=== PATIENT | female | born 1950 | race Caucasian/White ===

== ENCOUNTER → 2017-08-21 | Outpatient (CLI) | payer BC | LOC: MC.RAD 11:00 | DX: Z12.31 Encounter for screening mammogram for malignant neoplasm of breast (principal); Q83.8 Other congenital malformations of breast ==

== ENCOUNTER → 2017-08-24 | Outpatient (CLI) | payer BC | LOC: MC.RAD 07:30 | DX: R92.8 Other abnormal and inconclusive findings on diagnostic imaging of breast (principal) ==

== ENCOUNTER 2021-06-15 20:21 | Emergency (ER) | payer MEDICARE, OTHER ==
[~2021-06-15] VITALS: Ht 162.6 cm; Wt 56.8 kg
[2021-06-15 20:35] VITALS: TEMP 97.8
[2021-06-15 22:17] VITALS: BP 157/91; PULSE 90
== END 2021-06-15 22:17 | disposition home or self-care (01) ==
LOC: COL.ER 20:21
DX: S61.012A Laceration without foreign body of left thumb without damage to nail, initial encounter (principal); W26.0XXA Contact with knife, initial encounter

== ENCOUNTER 2023-03-24 13:08 | Emergency (ER) | payer MEDICARE, OTHER ==
[~2023-03-24] VITALS: Ht 162.6 cm; Wt 52.3 kg
[2023-03-24 13:30] LABS: COLLECTION METHOD CLEAN CATCH
[2023-03-24 13:50] LABS: PH 5.5 (5.0-8.5); URINE APPEARANCE Turbid (CLEAR/HAZY); URINE BLOOD 3+ (NEGATIVE); URINE COLOR Amber (YELLOW); URINE GLUCOSE Negative (NEGATIVE); URINE KETONE TRACE (NEGATIVE); URINE NITRATE Negative (NEGATIVE); URINE PROTEIN(semi-quant) 2+ (NEGATIVE); URINE RBC >50 /hpf (0-2); URINE UROBILINOGEN 0.2 E.U/dL (0.2-1.0)
[2023-03-24 14:17] LABS: BASO # 0.1 K/mm3 (0.0-0.2); BASO % 0.5 % (0.0-2.0); EOS # 0.1 K/mm3 (0.0-0.7); EOS % 0.8 % (0.0-4.0); GRAN # 10.7 K/mm3 (1.4-6.5); GRAN % 82.6 % (42.2-75.2); HEMATOCRIT 38.9 % (37.0-47.0); HEMOGLOBIN 12.4 g/dl (12.5-16.0); LYMPH # 1.2 K/mm3 (1.2-3.4); LYMPH % 9.5 % (20.0-51.0); MEAN CELL VOLUME 89 fl (80.0-100.0); MEAN CORPUSCULAR HEMOGLOBIN 28 pg (27-31); MEAN CORPUSCULAR HGB CONC 32 g/dl (33.0-37.0); MEAN PLATELET VOLUME 10.9 fl (7.4-10.4); MONO # 0.8 K/mm3 (0.1-0.6); MONO % 6.3 % (1.7-9.3); PLATELET COUNT 248 K/mm3 (130-400); RED BLOOD COUNT 4.38 M/mm3 (4.10-5.30)
[2023-03-24 14:37] LABS: ALBUMIN 3.5 gm/dL (3.4-4.8); BILIRUBIN,TOTAL 0.3 mg/dL (0.2-1.2); C-REACTIVE PROTEIN 0.78 mg/dL (0.00-0.50); CALCIUM 10.2 mg/dL (8.4-10.2); CREATININE, serum 0.66 mg/dL (0.57-1.11); POTASSIUM 4.2 mmol/L (3.5-4.5)
[2023-03-24] MEDS ORDERED: CEFTIN500 MG PO (15:07)
[2023-03-24 15:29] VITALS: BP 138/78; PULSE 95; TEMP 98.1
[2023-03-26] MEDS ORDERED: EUTHYROX75 MCG PO (11:27)
[2023-03-26] MEDS ORDERED: EFFEXOR XR75 MG/CAP PO (11:28)
[2023-03-26] MEDS ORDERED: COZAAR 50MG50 MG/TAB PO (11:28)
[2023-03-26] MEDS ORDERED: OMEGA-3 1000 MG1 CAP PO (11:28)
[2023-03-26] MEDS ORDERED: MASON NATURAL2000 IU PO (11:29)
[2023-03-26] MEDS ORDERED: VITAMIN B COMPL1 SGL PO (11:29)
[2023-03-26] MEDS ORDERED: NATURE'S BLE1000 MCG (11:30)
[2023-03-26] MEDS ORDERED: MULTIPLE VITAMI1 CAP PO (11:30)
[2023-03-26] MEDS ORDERED: BENEFIBER (11:30)
[2023-03-26] MEDS ORDERED: Prevagen (11:33)
[2023-03-26] MEDS ORDERED: PREDNISONE20 MG PO (12:44)
[2023-03-26] MEDS ORDERED: PEPCID40 MG PO (12:45)
[2023-03-26] MEDS ORDERED: BENADRYL25 M2 PO (12:46)
== END 2023-03-24 15:29 | disposition home or self-care (01) ==
LOC: COL.ER 13:08
PROVIDERS: Emergency Medicine
DX: N39.0 Urinary tract infection, site not specified (principal); M54.9 Dorsalgia, unspecified; G89.29 Other chronic pain; D64.9 Anemia, unspecified; Z79.891 Long term (current) use of opiate analgesic; Z88.0 Allergy status to penicillin; Z88.2 Allergy status to sulfonamides
CPT/HCPCS: J0696; J7030

== ENCOUNTER 2023-07-13 12:57 | Outpatient (RCR) | payer MEDICARE, OTHER ==
[~2023-07-13 12:57] MED LIST: BENADRYL25 M2 PO; BENEFIBER; CEFTIN500 MG PO; COZAAR 50MG50 MG/TAB PO; EFFEXOR XR75 MG/CAP PO; EUTHYROX75 MCG PO; MASON NATURAL2000 IU PO; MULTIPLE VITAMI1 CAP PO; NATURE'S BLE1000 MCG; OMEGA-3 1000 MG1 CAP PO; PEPCID40 MG PO; PREDNISONE20 MG PO; Prevagen; VITAMIN B COMPL1 SGL PO
== END 2023-07-17 | disposition home or self-care (01) ==
LOC: COL.CR
DX: Z48.812 Encounter for surgical aftercare following surgery on the circulatory system (principal); Z95.2 Presence of prosthetic heart valve